=== PATIENT | female | born 1990 | race African-American/Black ===

== ENCOUNTER 2020-06-08 13:11 | Emergency (ER) | payer OTHER ==
[~2020-06-08 13:11] MED LIST: AMOXICILLIN875 MG PO; BROMFED DM COU473 ML PO; IRON325 M1 PO; MEDROL 4MG DOSEP4 MG PO; PREDNISONE 20MG20 MG PO; PRENATAL FORMU1 EACH PO; PROAIR HFA8.5 GM INH; TESSALON PERLE100 M1 PO; ZPAK PO
== END 2020-06-08 15:33 | disposition home or self-care (01) ==
LOC: FER 13:11
DX: T22.211A Burn of second degree of right forearm, initial encounter (principal); T23.201A Burn of second degree of right hand, unspecified site, initial encounter; Z86.711 Personal history of pulmonary embolism; Z23 Encounter for immunization; X08.8XXA Exposure to other specified smoke, fire and flames, initial encounter; Y92.009 Unspecified place in unspecified non-institutional (private) residence as the place of occurrence of the external cause; T23.202A Burn of second degree of left hand, unspecified site, initial encounter
CPT/HCPCS: 90471; 90715

== ENCOUNTER 2020-09-23 17:08 | Emergency (ER) | payer OTHER ==
[2020-09-23 20:27] LABS: BILIRUBIN NEGATIVE (NEGATIVE); BLOOD NEGATIVE Ery/uL (NEGATIVE); CLARITY CLEAR (CLEAR); COLOR YELLOW (YELLOW); GLUCOSE (U) NORMAL (NORMAL); LEUKOCYTES NEGATIVE Leu/uL (NEGATIVE); NITRITE NEGATIVE (NEGATIVE); PROTEIN NEGATIVE (NEGATIVE); SPECIFIC GRAVITY >=1.030 (1.001-1.030); pH 5.5 (5.0-9.0)
[2020-09-23] MEDS ORDERED: ONDANSETRON ODT4 MG SL (21:45)
[2020-09-23] MEDS ORDERED: IBUPROFEN800 MG PO (21:45)
== END 2020-09-23 21:45 | disposition home or self-care (01) ==
LOC: FER 17:08
PROVIDERS: Emergency Medicine Emergency Medical Services
DX: U07.1 COVID-19 (principal); F17.200 Nicotine dependence, unspecified, uncomplicated
CPT/HCPCS: 81003; J1885; U0002